=== PATIENT | male | born 1990 | race Caucasian/White ===

== ENCOUNTER 2016-11-23 20:45 | Inpatient (IN) | payer BC ==
--- NOTE | ~2016-11-23 | OP ---
Record Of Operation [facility] [address] [place]. [address] NAME: LISA REID : [id number] STATUS : ADM IN PAT#: [id number] AGE: 26 ADM/REG DATE : 11/23/16 MR#: [id number] REPORT SERV DATE: 12/07/16 DICTATED BY: VERONICA PALMER III DATE: 12/07/16 REPORT STATUS : Draft TRANSCRIBED BY: MODL DATE: 12/07/16 DATE OF PROCEDURE: 12/07/2016 PREOPERATIVE DIAGNOSIS: Acute leukemia with need for Port-A-Cath placement to allow for chronic IV access for chemotherapy. POSTOPERATIVE DIAGNOSIS: Acute leukemia with need for Port-A-Cath placement to allow for chronic IV access for chemotherapy. PROCEDURE: Right subclavian vein Port-A-Cath placement with fluoroscopy. SURGEON: Veronica Palmer M.D. ANESTHESIA: MAC anesthesia. COMPLICATIONS: None. ESTIMATED BLOOD LOSS: Less than 5 mL. SPECIMENS: None. DRAINS: None. LAP AND SPONGE COUNT: Correct x3. BRIEF HISTORY: This 26-year-old male was recently diagnosed with acute leukemia. We have been asked by his medical oncologist to place a Port-A-Cath to allow for chronic IV access for chemotherapy. This procedure, the risks, benefits, and alternatives, including but not limited to the risk for bleeding, infection, pneumothorax, air embolus, pericardial tamponade, failure of the port to function, infection of the port, or subclavian vein thrombosis requiring removal of the port, dislodgement of the Port-A-Cath tubing requiring extraction, and unforeseen complications including deep venous thrombosis, pulmonary embolus, myocardial infarction, stroke, pneumonia, and were explained to the patient prior to the surgery. His questions were answered. He understood the risks and agreed to the surgery as planned. DESCRIPTION OF PROCEDURE: After being properly identified and after discussing the risks and benefits of the surgery with him again in the preoperative area, the patient was taken to the operating room and placed in the supine position on the operating room table. MAC anesthesia was administered. He was intubated without difficulty. The upper chest and neck areas were prepped and draped sterilely in the usual fashion. After an appropriate "time- out" per JCAHO standards, an 18-gauge needle was used to identify the right subclavian vein, the area was injected with 0.5% Marcaine. The vein was identified on the first pass of the needle. A guidewire was passed through the needle. The needle was removed. Fluoroscopy was performed, confirming the tip of the guidewire to be in the correct position in the superior vena cava. A small transverse incision was then made at the exit site of the Record Of Operation [address] [address] NAME: LISA REID : [id number] STATUS : ADM IN [facility]#: [id number] AGE: 26 ADM/REG DATE : 11/23/16 MR#: [id number] REPORT SERV DATE: 12/07/16 DICTATED BY: VERONICA PALMER III DATE: 12/07/16 REPORT STATUS : Draft TRANSCRIBED BY: JENNIFER DATE: 12/07/16 guidewire from the skin. A subcutaneous infraclavicular pocket was made of the appropriate size for the Port-A-Cath housing. The Port-A-Cath housing and tubing were assembled, flushed with a heparin solution and the tubing cut to the appropriate length. The introducer was then placed over the guidewire as the guidewire and inner dilator were removed. The Port-A-Cath tubing was then placed through the sheath as the sheath was peeled away. This went very smoothly. The Port-A-Cath housing was positioned in the infraclavicular pocket. It was secured in place with 2-0 silk sutures. A repeat fluoroscopy was performed, confirming the tip of the Port-A-Cath tubing to be in the correct position of the superior vena cava. The port was accessed with a Casillas needle, it was noted to aspirate blood easily. It was flushed with heparin solution and noted to flush easily. Hemostasis was assured. The subcutaneous tissue was closed with a running 3-0 Vicryl suture. The skin was closed with a running subcuticular 4-0 Monocryl stitch. The incision was injected with 0.5% Marcaine. Dermabond was applied. Anesthesia was reversed. The patient was taken to the recovery room in stable condition. He tolerated the procedure well. His family was informed the results of the surgery. The patient remains in the hospital for chemotherapy regarding his leukemia. BRISEYDA/JENNIFER Veronica Palmer III, M.D. / [id number] CC: Sy Cifuentes III, M.D.
--- NOTE | ~2016-11-23 | CN ---
Consultation Report [facility] [address] [place]. [address] NAME: LISA REID : [id number] STATUS : ADM IN [facility]#: [id number] AGE: 26 ADM/REG DATE : 11/23/16 MR#: [id number] REPORT SERV DATE: 12/06/16 DICTATED BY: VERONICA MUNOZ III DATE: 12/06/16 REPORT STATUS : Draft TRANSCRIBED BY: MODIman DATE: 12/06/16 CONSULTATION DATE OF CONSULTATION: 12/06/2016 REASON FOR CONSULTATION: 1. Probable leukemia. 2. Evaluation for Port-A-Cath placement. HISTORY OF PRESENT ILLNESS: We have been asked to see this 26-year-old male in the hospital today for the above reasons. The patient was admitted to the hospital approximately 2 weeks ago with unusual bruising and prolonged nasal bleeding. His workup included a bone marrow biopsy for pancytopenia, which has been positive for acute promyelocytic leukemia. The patient is undergoing chemotherapy and is in need of Port-A-Cath placement to allow for chronic IV access for chemotherapy. The patient complains of pain over his left ear, which is related to a ruptured tympanic membrane. 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 PAST MEDICAL HISTORY: Unremarkable. ALLERGIES: AZITHROMYCIN. MEDICATIONS: Allopurinol, Augmentin, Cipro, . SOCIAL HISTORY: The patient is . 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 No history of tobacco use. He has occasional history of alcohol use. FAMILY HISTORY: Positive for coronary artery disease and cerebrovascular accident. PHYSICAL EXAMINATION: GENERAL: This is a male, in no acute distress. He is alert and oriented x3. VITAL SIGNS: Blood pressure 112/57, pulse 68, temperature 98.1. HEENT: Unremarkable. NEUROLOGIC: Cranial nerves 2 through 12 were normal. LUNGS: Clear. CARDIAC: Normal. ABDOMEN: Soft. Nontender. IMAGING DATA: Chest x-ray is normal. LABORATORY DATA: Platelet count 16,000, hematocrit 20, white blood cell count 425. ASSESSMENT: 1. A 26-year-old male with acute leukemia, with need for Port-A-Cath placement to allow for chronic IV access for chemotherapy. Consultation Report [address] [address] NAME: LISA REID : [id number] STATUS : ADM IN [facility]#: [id number] AGE: 26 ADM/REG DATE : 11/23/16 MR#: [id number] REPORT SERV DATE: 12/06/16 DICTATED BY: VERONICA MUNOZ III DATE: 12/06/16 REPORT STATUS : Draft TRANSCRIBED BY: MODL DATE: 12/06/16 2. Thrombocytopenia. PLAN: We will schedule the patient for a Port-A-Cath placement tomorrow. This procedure, the risks, benefits, and alternatives, including but not limited to the risk for bleeding, infection, pneumothorax, air embolus, pericardial tamponade, failure of the port to function, infection of the port, or subclavian vein thrombosis requiring removal of the port, dislodgement of the Port-A-Cath tubing requiring extraction, and unforeseen complications including deep venous thrombosis, pulmonary embolus, myocardial infarction, stroke, pneumonia, and , have been explained to the patient prior to surgery. The fact that there will be increased risk for bleeding because of his thrombocytopenia has been explained. The patient's questions have been answered. He understands the risks and agrees to surgery as planned. BRISEYDA/JENNIFER Veronica Munoz III, M.D. / [id number] CC: Sy Cifuentes III, M.D.
--- NOTE | ~2016-11-23 | DS ---
Discharge Summary [facility] [address] [place]. [address] NAME: LISA REID : [id number] STATUS : DIS IN PAT#: [id number] AGE: 26 ADM/REG DATE : 11/23/16 MR#: [id number] REPORT SERV DATE: 12/30/16 DICTATED BY: SY BENITEZ III DATE: 12/29/16 REPORT STATUS : Draft TRANSCRIBED BY: JENNIFER DATE: 12/29/16 Data Collection from hospitalization DISCHARGE DIAGNOSIS(ES): Acute promyelocytic leukemia. CONSULTATIONS: Scott Munoz M.D., and Toby Eckert M.D., and Luis Joiner M.D. PROCEDURES PERFORMED: Right subclavian vein Port-A-Cath placement with fluoroscopy, 12/07/2016. PATHOLOGY: Peripheral smear with severe pancytopenia and circulating primitive cells/promyelocytes consistent with promyelocytic leukemia, unilateral bone marrow biopsy, and aspiration and clot section - markedly hypercellular (greater than 95%) marrow with primitive cell infiltrates (greater than 90% cellularity) consistent with acute promyelocytic leukemia, confirmation with PML/SALAZAR-positive, cytogenetics and flow cytometry pending (to be issued in an addendum). MEDICATIONS: Ciloxan 3-5 drops twice a day OT, Vesanoid 10 mg at bedtime and 20 mg daily, triamcinolone cream one application topically daily as needed, arsenic trioxide as instructed. He was instructed not to continue ibuprofen, Aleve, DayQuil, or NyQuil. CONDITION AT DISCHARGE: Stable. DISPOSITION: The patient was discharged home on a regular diet. Activities as instructed. He would follow up with me, 12/20/2016, and would follow up with me, 12/22/2016. HOSPITAL COURSE: This is a 26-year-old man, who had been in very good health. He takes very good care of himself and runs marathons. He ran a marathon in the early part of October without difficulty. Around 11/04/2016, he began to notice that he was more fatigued. 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 He noticed that on the day prior to this admission when he removed his wet suit. He had significant bruising around his arms, and he felt very tired. He also had some petechiae on his legs and bruises on his chest but did not remember any trauma. He sought care at a local physician's care. Lab studies revealed his white count to be 9000 with 54% granulocytes, hemoglobin was 7.4, platelets were 13. He was referred immediately to [facility]. He had a nosebleed that lasted on the day prior to this admission for six hours while he was driving. He had also had mild headache, some loose stools, and some increased shortness of breath and poor exercise tolerance. The patient was transferred here and admitted for further evaluation with acute pancytopenia with symptomatic anemia. Upon admission, the differential included aplastic anemia versus an acute leukemia. IV fluids were started. He received two units of packed red blood cells and one pack of platelets. It was felt that he would need to undergo a bone marrow biopsy. His white blood cell count was found to be 1.0, hemoglobin 7.3, and platelet count of 8. He has seen no blood in his stool or elsewhere. prognosis would depend on the underlying diagnosis. With the patient's excellent help, it was felt that he would be a good candidate for any form of therapy available up into doing and including high-dose therapy and stem Discharge Summary [address] [place]. [address] NAME: LISA REID : [id number] STATUS : DIS IN PAT#: [id number] AGE: 26 ADM/REG DATE : 11/23/16 MR#: [id number] REPORT SERV DATE: 12/30/16 DICTATED BY: SY BENITEZ III DATE: 12/29/16 REPORT STATUS : Draft TRANSCRIBED BY: MODL DATE: 12/29/16 cell transplantation if necessary. He does have a brother and living parents as his potential donor options should that become necessary. He was started on prophylactic acyclovir and fluconazole. He was started on appropriate antibiotics IV with cefepime. He was transferred to the leukemia units. The patient was seen by Dr. Toby Eckert. Plans will be made for a bone marrow biopsy to be performed. A triple lumen PICC line was going to be placed. B12 and folate were going to be checked the following morning. Diflucan and acyclovir were being given. On 11/25/2016, an echocardiogram was performed. A triple lumen PICC line was inserted. The patient continued to have a slow nosebleed. He had no other problems at this time. The patient was felt to have acute promyelocytic leukemia. ATRA was continued. The following day the patient said he felt miserable with epistaxis and left ear severe pain. He was uncomfortable. FISH was going to be checked. An ENT consult was requested. He was seen by Dr. Luis Joiner. The patient was complaining of epistaxis with left ear pain. He had decreased hearing in the left ear as well. Examination of the left ear revealed blood and pus. The external auditory canal was swollen. The tympanic membrane was poorly visualized. Cipro was going to begin. On 11/27/2016, epistaxis had stopped. White count was 4.9. He was responding to ATRA. Arsenic trioxide was started. Zofran was soft. He still had drainage and intermittent pain in the left ear. Blood counts were improving. He was receiving oral Augmentin as well as Cipro. On the , he had a mild amount of bleeding from the left ear. He had no edema. His lungs were clear. ATRA plus arsenic were continued. He was transfused two units of blood. He continued to have some ear pain but it had improved. He still reported otorrhea. He had no bleeding. The drainage from his ear began to decrease. He did have some minimal tenderness around the PICC line site. On the , the patient was seen by Dr. Scott Munoz regarding probable leukemia and evaluation for Port-A-Cath placement. He had had a bone marrow biopsy for pancytopenia, which had been positive for acute promyelocytic leukemia. He was undergoing chemotherapy and was in need of a Port-A-Cath to allow for chronic IV access for chemotherapy. He continued to complain of pain over his left ear, which was related to a ruptured tympanic membranes. Chest x-ray was normal. Platelet count was 16,000. The patient was going to be scheduled for Port-A-Cath placement the following day. He still had some bleeding from the left ear. Platelets were transfused. Augmentin was continued. On the , he was taken to the operating room by Dr. Janie Munoz where he underwent the above-mentioned procedure. He tolerated this well. There were no complications. The patient was noting tinnitus and continued left ear otorrhea. He was up sitting in a chair. Oral Augmentin was restarted. Drops were continued. On 12/08/2016, the patient had itching over his arms and legs. Diflucan was soft. DAVID and ATRA were being held until his liver function tests recovered. Daily CMP was being checked. Cipro drops continued. He complained of some dizziness. He noticed some swelling at the port site when ambulating. This was going to be observed and it was felt this should resolve. On 12/11/2016, he had no new problems. He still had some mild dizziness. His elevated liver function tests were slowly improving. The arsenic was going to begin. ATRA remained on hold. On the , ATRA was restarted. Liver function tests were normalizing. ATRA and DAVID continued at 50% dosing. On the , intermittent heat was going to be applied to the right arm PAC site due to the edema and tenderness. He had no new complaints. He said he was feeling well. He was ambulating. He had no nausea or vomiting. Discharge Summary [facility] [address] [place]. [address] NAME: LISA REID : [id number] STATUS : DIS IN PAT#: [id number] AGE: 26 ADM/REG DATE : 11/23/16 MR#: [id number] REPORT SERV DATE: 12/30/16 DICTATED BY: SY BENITEZ III DATE: 12/29/16 REPORT STATUS : Draft TRANSCRIBED BY: JENNIFER DATE: 12/29/16 He was tolerating some oral intake. Transaminitis was trending down. Thrombocytopenia was improving. Discharge planning was performed on 12/19/2016. Discharge instructions were given. Due to his improved and stable condition, he was discharged home with the above- stated instructions. Information collected by: Coby Krishnan I submit the above information as my discharge summary. JORDON/JENNIFER Sy Benitez III, M.D. / [id number] CC: Manda Ernandez III, III, M.D.
[~2016-11-23 20:45] MED LIST: ADVIL PO; ALEVE220 MG PO; DAYQUIL PO
[2016-11-23] MEDS ORDERED: NYQUIL PO (21:37)
[2016-11-23] MEDS ORDERED: ALEVE220 MG PO (21:38)
[2016-11-23] MEDS ORDERED: TRIAMCINOLONE C80 GM TOP (21:39)
[2016-11-24 06:07] LABS: HEMOGLOBIN 8.4 g/dL (13.6-17.8); MEAN CORPUS HGB CONC 35.4 g/dL (32.0-36.0); MEAN CORPUSCULAR HEMOGLOB 33.9 pg (26.0-34.0); MEAN PLATELET VOLUME 11.8 fL (9.2-13.0); NUCLEATED RED BLOOD CELLS 1.6 /100WBC (0-0); RBC DISTRIBUTION WIDTH 15.3 % (12.0-16.0); RED CELL COUNT 2.48 10/6/uL (4.7-6.1)
[2016-11-24 06:14] LABS: HEMATOCRIT 23.7 % (40.0-51.0); MEAN CORPUSCULAR VOLUME 95.6 fL (80-100); PLATELET COUNT 17 10/3/uL (150-400); WHITE BLOOD CELLS 1.6 10/3/uL (4.5-10.5)
[2016-11-24 06:15] LABS: MANUAL DIFF YES %
[2016-11-24 06:18] LABS: CALCIUM, SERUM 8.5 MG/DL (8.5-10.4); CHLORIDE, SERUM 104 MMOL/L (96-112); CO2 (CARBON DIOXIDE) 27 MMOL/L (24-34); CREATININE 0.67 MG/DL (0.70-1.30); GFR AFRICAN AMERICAN 152 ML/MIN (>=60); GFR NON AFRICAN AMERICAN 131 ML/MIN (>=60); GLUCOSE, SERUM 99 MG/DL (60-99); POTASSIUM, SERUM 4.1 MMOL/L (3.5-5.3); SODIUM, SERUM 141 MMOL/L (135-148)
[2016-11-24 06:19] LABS: BUN (BLOOD UREA NITROGEN) 10 MG/DL (6-23)
[2016-11-24 07:05] LABS: METAMYELOCYTES 4 %; MYELOCYTES 1 %; TOTAL NUCLEATED CELLS 100
[2016-11-24 07:06] LABS: RBC MORPHOLOGY NORM (NORMAL)
[2016-11-24 08:09] LABS: RETICULOCYTE COUNT 2.9 % (0.5-2.9); RETICULOCYTE COUNT ABSOLUTE 72.2 10/3/uL (20.2-119.8)
[2016-11-24 10:33] LABS: BAND NEUTROPHILS 2 %; SEGMENTED NEUTROPHIL (0) 7 %
[2016-11-24 10:34] LABS: LYMPHOCYTES 33 %; PROMYELOCYTES 53 % (0)
[2016-11-24 10:36] LABS: LYMPHOCYTES ABSOLUTE (CALC) 0.53 10/3/uL (0.67-4.30); NEUTROPHILS ABSOLUTE (CALC) 0.14 10/3/uL (2.02-8.40)
[2016-11-24 10:38] LABS: IMMATURE GRANS ABSOLUTE (CALC) 0.93 10/3/uL (0.0-0.11)
[2016-11-24 11:06] LABS: PARTIAL THROMBO TIME 29.4 SEC (22.5-37.2)
[2016-11-24 11:08] LABS: INTERNATIONAL NORMAL RATI 1.4 UNITS (-)
[2016-11-24 17:11] LABS: INTERNATIONAL NORMAL RATI 1.3 UNITS (-); PARTIAL THROMBO TIME 28.8 SEC (22.5-37.2); PROTIME (NOT ORD) 16.2 SEC (12.0-14.5)
[2016-11-25 07:32] LABS: FIBRINOGEN 227 MG/DL (230-462); INTERNATIONAL NORMAL RATI 1.2 UNITS (-); PARTIAL THROMBO TIME 27.5 SEC (22.5-37.2); PROTIME (NOT ORD) 15.5 SEC (12.0-14.5)
[2016-11-25 07:40] LABS: A/G RATIO 1.1 (0.7-1.9); ALBUMIN 3.9 G/DL (3.5-5.0); ALKALINE PHOSPHATASE 54 U/L (45-117); BUN (BLOOD UREA NITROGEN) 11 MG/DL (6-23); CALCIUM, SERUM 8.9 MG/DL (8.5-10.4); CHLORIDE, SERUM 102 MMOL/L (96-112); CO2 (CARBON DIOXIDE) 27 MMOL/L (24-34); CREATININE 0.77 MG/DL (0.70-1.30); GFR AFRICAN AMERICAN 143 ML/MIN (>=60); GFR NON AFRICAN AMERICAN 123 ML/MIN (>=60); GLOBULIN 3.4 G/DL (2.5-4.1); GLUCOSE, SERUM 103 MG/DL (60-99); SGOT(AST) 21 U/L (5-40); SGPT(ALT) 28 U/L (5-65); SODIUM, SERUM 140 MMOL/L (135-148); TOTAL BILIRUBIN 0.7 MG/DL (0-1.2); TOTAL PROTEIN 7.3 G/DL (6.0-8.5)
[2016-11-25 07:42] LABS: HEMATOCRIT 23.8 % (40.0-51.0); HEMOGLOBIN 8.5 g/dL (13.6-17.8); MEAN CORPUS HGB CONC 35.7 g/dL (32.0-36.0); MEAN CORPUSCULAR HEMOGLOB 33.9 pg (26.0-34.0); MEAN CORPUSCULAR VOLUME 94.8 fL (80-100); MEAN PLATELET VOLUME 10.1 fL (9.2-13.0); RBC DISTRIBUTION WIDTH 15.6 % (12.0-16.0); RED CELL COUNT 2.51 10/6/uL (4.7-6.1)
[2016-11-25 07:47] LABS: PLATELET COUNT 28 10/3/uL (150-400); WHITE BLOOD CELLS 2.4 10/3/uL (4.5-10.5)
[2016-11-25 07:48] LABS: MANUAL DIFF YES %
[2016-11-25 08:30] LABS: BAND NEUTROPHILS 1 %; BASOPHILS 1 %; BASOPHILS ABSOLUTE (CALC) 0.02 10/3/uL (0.0-0.16); BLASTS 4 % (0); LYMPHOCYTES 23 %; LYMPHOCYTES ABSOLUTE (CALC) 0.55 10/3/uL (0.67-4.30); METAMYELOCYTES 2 %; MONOCYTES 9 %; MONOCYTES ABSOLUTE (CALC) 0.22 10/3/uL (0.21-1.20); MYELOCYTES 1 %; NEUTROPHILS ABSOLUTE (CALC) 0.22 10/3/uL (2.02-8.40); SEGMENTED NEUTROPHIL (0) 8 %; TOTAL NUCLEATED CELLS 100
[2016-11-25 08:32] LABS: POLYCHROMASIA 1+ (2-5/OIF) (0-1/OIF); PROMYELOCYTES 51 % (0)
[2016-11-25 19:04] LABS: HEMATOCRIT 23.7 % (40.0-51.0); HEMOGLOBIN 8.3 g/dL (13.6-17.8); INTERNATIONAL NORMAL RATI 1.3 UNITS (-); MEAN CORPUSCULAR HEMOGLOB 33.2 pg (26.0-34.0); MEAN CORPUSCULAR VOLUME 94.8 fL (80-100); MEAN PLATELET VOLUME 10.2 fL (9.2-13.0); NUCLEATED RED BLOOD CELLS 2.3 /100WBC (0-0); PARTIAL THROMBO TIME 27.5 SEC (22.5-37.2); PROTIME (NOT ORD) 15.8 SEC (12.0-14.5); RBC DISTRIBUTION WIDTH 15.5 % (12.0-16.0); WHITE BLOOD CELLS 2.7 10/3/uL (4.5-10.5)
[2016-11-25 19:05] LABS: FIBRINOGEN 268 MG/DL (230-462); MANUAL DIFF YES %; PLATELET COUNT 22 10/3/uL (150-400)
[2016-11-25 19:13] LABS: A/G RATIO 1.1 (0.7-1.9); ALBUMIN 4.3 G/DL (3.5-5.0); ALKALINE PHOSPHATASE 56 U/L (45-117); BUN (BLOOD UREA NITROGEN) 12 MG/DL (6-23); CALCIUM, SERUM 8.9 MG/DL (8.5-10.4); CHLORIDE, SERUM 98 MMOL/L (96-112); CO2 (CARBON DIOXIDE) 29 MMOL/L (24-34); CREATININE 0.81 MG/DL (0.70-1.30); GFR AFRICAN AMERICAN 140 ML/MIN (>=60); GFR NON AFRICAN AMERICAN 121 ML/MIN (>=60); GLOBULIN 3.8 G/DL (2.5-4.1); GLUCOSE, SERUM 98 MG/DL (60-99); POTASSIUM, SERUM 3.9 MMOL/L (3.5-5.3); SGOT(AST) 20 U/L (5-40); SGPT(ALT) 28 U/L (5-65); SODIUM, SERUM 139 MMOL/L (135-148); TOTAL BILIRUBIN 0.3 MG/DL (0-1.2); TOTAL PROTEIN 8.1 G/DL (6.0-8.5)
[2016-11-25 19:36] LABS: ANISOCYTOSIS 1+ (5-10/OIF) (0-5/OIF); BAND NEUTROPHILS 6 %; BASOPHILS 1 %; BASOPHILS ABSOLUTE (CALC) 0.03 10/3/uL (0.0-0.16); IMMATURE GRANS ABSOLUTE (CALC) 1.13 10/3/uL (0.0-0.11); LYMPHOCYTES 29 %; LYMPHOCYTES ABSOLUTE (CALC) 0.78 10/3/uL (0.67-4.30); METAMYELOCYTES 1 %; MONOCYTES 1 %; MONOCYTES ABSOLUTE (CALC) 0.03 10/3/uL (0.21-1.20); NEUTROPHILS ABSOLUTE (CALC) 0.54 10/3/uL (2.02-8.40); SEGMENTED NEUTROPHIL (0) 14 %; TOTAL NUCLEATED CELLS 100
[2016-11-25 19:37] LABS: POIKILOCYTOSIS 1+ (5-10/OIF) (0-5/OIF)
[2016-11-25 19:39] LABS: BLASTS 7 % (0); PROMYELOCYTES 41 % (0)
[2016-11-26 05:41] LABS: HEMATOCRIT 21.4 % (40.0-51.0); HEMOGLOBIN 7.6 g/dL (13.6-17.8); MEAN CORPUS HGB CONC 35.5 g/dL (32.0-36.0); MEAN CORPUSCULAR HEMOGLOB 33.8 pg (26.0-34.0); MEAN CORPUSCULAR VOLUME 95.1 fL (80-100); MEAN PLATELET VOLUME 9.9 fL (9.2-13.0); NUCLEATED RED BLOOD CELLS 1.6 /100WBC (0-0); RBC DISTRIBUTION WIDTH 15.3 % (12.0-16.0); RED CELL COUNT 2.25 10/6/uL (4.7-6.1); WHITE BLOOD CELLS 2.8 10/3/uL (4.5-10.5)
[2016-11-26 05:42] LABS: MANUAL DIFF YES %; PLATELET COUNT 15 10/3/uL (150-400)
[2016-11-26 05:43] LABS: FIBRINOGEN 259 MG/DL (230-462); INTERNATIONAL NORMAL RATI 1.2 UNITS (-); PARTIAL THROMBO TIME 28.6 SEC (22.5-37.2); PROTIME (NOT ORD) 15.3 SEC (12.0-14.5)
[2016-11-26 05:51] LABS: A/G RATIO 1.2 (0.7-1.9); ALBUMIN 3.7 G/DL (3.5-5.0); ALKALINE PHOSPHATASE 60 U/L (45-117); BUN (BLOOD UREA NITROGEN) 15 MG/DL (6-23); CALCIUM, SERUM 8.7 MG/DL (8.5-10.4); CHLORIDE, SERUM 101 MMOL/L (96-112); CO2 (CARBON DIOXIDE) 29 MMOL/L (24-34); CREATININE 0.78 MG/DL (0.70-1.30); GFR AFRICAN AMERICAN 142 ML/MIN (>=60); GFR NON AFRICAN AMERICAN 123 ML/MIN (>=60); GLOBULIN 3.2 G/DL (2.5-4.1); GLUCOSE, SERUM 101 MG/DL (60-99); POTASSIUM, SERUM 4.2 MMOL/L (3.5-5.3); SGOT(AST) 19 U/L (5-40); SGPT(ALT) 24 U/L (5-65); SODIUM, SERUM 139 MMOL/L (135-148); TOTAL BILIRUBIN 0.3 MG/DL (0-1.2); TOTAL PROTEIN 6.9 G/DL (6.0-8.5)
[2016-11-26 07:21] LABS: BLASTS 5 % (0); IMMATURE GRANS ABSOLUTE (CALC) 1.34 10/3/uL (0.0-0.11); LYMPHOCYTES 41 %; LYMPHOCYTES ABSOLUTE (CALC) 1.15 10/3/uL (0.67-4.30); MONOCYTES 1 %; MONOCYTES ABSOLUTE (CALC) 0.03 10/3/uL (0.21-1.20); NEUTROPHILS ABSOLUTE (CALC) 0.14 10/3/uL (2.02-8.40); SEGMENTED NEUTROPHIL (0) 5 %; TOTAL NUCLEATED CELLS 100
[2016-11-26 07:23] LABS: PROMYELOCYTES 48 % (0)
[2016-11-26 07:25] LABS: RBC MORPHOLOGY NORM (NORMAL)
[2016-11-26 15:59] LABS: HEMOGLOBIN 7.5 g/dL (13.6-17.8); MEAN CORPUS HGB CONC 35.7 g/dL (32.0-36.0); MEAN CORPUSCULAR HEMOGLOB 33.8 pg (26.0-34.0); MEAN CORPUSCULAR VOLUME 94.6 fL (80-100); MEAN PLATELET VOLUME 9.4 fL (9.2-13.0); RBC DISTRIBUTION WIDTH 15.2 % (12.0-16.0); RED CELL COUNT 2.22 10/6/uL (4.7-6.1); WHITE BLOOD CELLS 3.1 10/3/uL (4.5-10.5)
[2016-11-26 16:00] LABS: MANUAL DIFF YES %; PLATELET COUNT 38 10/3/uL (150-400)
[2016-11-26 16:34] LABS: ALBUMIN 3.7 G/DL (3.5-5.0); ALKALINE PHOSPHATASE 54 U/L (45-117); BUN (BLOOD UREA NITROGEN) 12 MG/DL (6-23); CHLORIDE, SERUM 102 MMOL/L (96-112); CO2 (CARBON DIOXIDE) 30 MMOL/L (24-34); CREATININE 0.64 MG/DL (0.70-1.30); GFR AFRICAN AMERICAN 154 ML/MIN (>=60); GFR NON AFRICAN AMERICAN 133 ML/MIN (>=60); GLOBULIN 3.6 G/DL (2.5-4.1); GLUCOSE, SERUM 104 MG/DL (60-99); POTASSIUM, SERUM 4.4 MMOL/L (3.5-5.3); SGOT(AST) 19 U/L (5-40); SGPT(ALT) 23 U/L (5-65); SODIUM, SERUM 141 MMOL/L (135-148); TOTAL BILIRUBIN 0.3 MG/DL (0-1.2); TOTAL PROTEIN 7.3 G/DL (6.0-8.5)
[2016-11-26 16:35] LABS: PARTIAL THROMBO TIME 27.9 SEC (22.5-37.2)
[2016-11-26 16:37] LABS: INTERNATIONAL NORMAL RATI 1.2 UNITS (-); PROTIME (NOT ORD) 15.1 SEC (12.0-14.5)
[2016-11-26 16:43] LABS: ANISOCYTOSIS 1+ (5-10/OIF) (0-5/OIF); BAND NEUTROPHILS 4 %; BASOPHILS 1 %; BASOPHILS ABSOLUTE (CALC) 0.03 10/3/uL (0.0-0.16); IMMATURE GRANS ABSOLUTE (CALC) 1.21 10/3/uL (0.0-0.11); LYMPHOCYTES 43 %; LYMPHOCYTES ABSOLUTE (CALC) 1.33 10/3/uL (0.67-4.30); NEUTROPHILS ABSOLUTE (CALC) 0.37 10/3/uL (2.02-8.40); NUCLEATED RED BLOOD CELLS 5 /100WBC (0); SEGMENTED NEUTROPHIL (0) 8 %; TOTAL NUCLEATED CELLS 100
[2016-11-26 16:44] LABS: POIKILOCYTOSIS 1+ (5-10/OIF) (0-5/OIF)
[2016-11-26 16:45] LABS: BLASTS 5 % (0); PROMYELOCYTES 39 % (0)
[2016-11-27 06:00] LABS: INTERNATIONAL NORMAL RATI 1.2 UNITS (-); PROTIME (NOT ORD) 15.5 SEC (12.0-14.5)
[2016-11-27 06:05] LABS: HEMOGLOBIN 7.5 g/dL (13.6-17.8); MEAN CORPUS HGB CONC 35.7 g/dL (32.0-36.0); MEAN CORPUSCULAR HEMOGLOB 33.5 pg (26.0-34.0); MEAN CORPUSCULAR VOLUME 93.8 fL (80-100); MEAN PLATELET VOLUME 9.8 fL (9.2-13.0); NUCLEATED RED BLOOD CELLS 0.8 /100WBC (0-0); RED CELL COUNT 2.24 10/6/uL (4.7-6.1)
[2016-11-27 06:10] LABS: MANUAL DIFF YES %; PLATELET COUNT 57 10/3/uL (150-400); WHITE BLOOD CELLS 4.9 10/3/uL (4.5-10.5)
[2016-11-27 06:15] LABS: ALBUMIN 3.7 G/DL (3.5-5.0); ALKALINE PHOSPHATASE 46 U/L (45-117); BUN (BLOOD UREA NITROGEN) 11 MG/DL (6-23); CALCIUM, SERUM 9.2 MG/DL (8.5-10.4); CHLORIDE, SERUM 99 MMOL/L (96-112); CO2 (CARBON DIOXIDE) 29 MMOL/L (24-34); CREATININE 0.72 MG/DL (0.70-1.30); GFR AFRICAN AMERICAN 147 ML/MIN (>=60); GFR NON AFRICAN AMERICAN 127 ML/MIN (>=60); GLOBULIN 3.6 G/DL (2.5-4.1); GLUCOSE, SERUM 112 MG/DL (60-99); SGOT(AST) 25 U/L (5-40); SGPT(ALT) 21 U/L (5-65); SODIUM, SERUM 136 MMOL/L (135-148); TOTAL BILIRUBIN 0.2 MG/DL (0-1.2); TOTAL PROTEIN 7.3 G/DL (6.0-8.5)
[2016-11-27 08:05] LABS: BAND NEUTROPHILS 2 %; IMMATURE GRANS ABSOLUTE (CALC) 2.11 10/3/uL (0.0-0.11); LYMPHOCYTES 31 %; LYMPHOCYTES ABSOLUTE (CALC) 1.52 10/3/uL (0.67-4.30); MONOCYTES 6 %; MONOCYTES ABSOLUTE (CALC) 0.29 10/3/uL (0.21-1.20); MYELOCYTES 1 %; NEUTROPHILS ABSOLUTE (CALC) 0.64 10/3/uL (2.02-8.40); SEGMENTED NEUTROPHIL (0) 11 %; TOTAL NUCLEATED CELLS 100
[2016-11-27 08:06] LABS: BLASTS 7 % (0); PROMYELOCYTES 42 % (0)
[2016-11-27 08:07] LABS: PLATELET ESTIMATE DEC (ADEQUATE); POLYCHROMASIA 1+ (2-5/OIF) (0-1/OIF)
[2016-11-27 08:08] LABS: HYPOCHROMIA 1+ (3-10/OIF) (0-2/OIF)
[2016-11-27 18:50] LABS: ALBUMIN 3.9 G/DL (3.5-5.0); ALKALINE PHOSPHATASE 50 U/L (45-117); BUN (BLOOD UREA NITROGEN) 11 MG/DL (6-23); CALCIUM, SERUM 9.4 MG/DL (8.5-10.4); CHLORIDE, SERUM 97 MMOL/L (96-112); CO2 (CARBON DIOXIDE) 30 MMOL/L (24-34); CREATININE 0.85 MG/DL (0.70-1.30); GFR AFRICAN AMERICAN 137 ML/MIN (>=60); GFR NON AFRICAN AMERICAN 119 ML/MIN (>=60); GLOBULIN 3.8 G/DL (2.5-4.1); GLUCOSE, SERUM 106 MG/DL (60-99); POTASSIUM, SERUM 4.1 MMOL/L (3.5-5.3); SGOT(AST) 28 U/L (5-40); SGPT(ALT) 21 U/L (5-65); SODIUM, SERUM 137 MMOL/L (135-148); TOTAL BILIRUBIN 0.3 MG/DL (0-1.2); TOTAL PROTEIN 7.7 G/DL (6.0-8.5)
[2016-11-28 05:23] LABS: ALBUMIN 3.9 G/DL (3.5-5.0); ALKALINE PHOSPHATASE 50 U/L (45-117); BUN (BLOOD UREA NITROGEN) 11 MG/DL (6-23); CALCIUM, SERUM 9.3 MG/DL (8.5-10.4); CHLORIDE, SERUM 101 MMOL/L (96-112); CO2 (CARBON DIOXIDE) 28 MMOL/L (24-34); CREATININE 0.85 MG/DL (0.70-1.30); GFR AFRICAN AMERICAN 137 ML/MIN (>=60); GFR NON AFRICAN AMERICAN 119 ML/MIN (>=60); GLOBULIN 3.9 G/DL (2.5-4.1); GLUCOSE, SERUM 102 MG/DL (60-99); POTASSIUM, SERUM 4.2 MMOL/L (3.5-5.3); SGOT(AST) 28 U/L (5-40); SGPT(ALT) 23 U/L (5-65); SODIUM, SERUM 138 MMOL/L (135-148); TOTAL BILIRUBIN 0.3 MG/DL (0-1.2); TOTAL PROTEIN 7.8 G/DL (6.0-8.5)
[2016-11-28 05:30] LABS: BASOPHILS 2.9 %; BASOPHILS ABSOLUTE 0.16 10/3/uL (0.0-0.16); EOSINOPHILS 0.2 %; EOSINOPHILS ABSOLUTE 0.01 10/3/uL (0.0-0.53); HEMATOCRIT 21.1 % (40.0-51.0); HEMOGLOBIN 7.5 g/dL (13.6-17.8); IMMATURE GRANULOCYTES 3.8 %; IMMATURE GRANULOCYTES ABSOLUTE 0.21 10/3/uL (0.0-0.11); LYMPHOCYTES 30.9 %; LYMPHOCYTES ABSOLUTE 1.71 10/3/uL (0.67-4.30); MEAN CORPUS HGB CONC 35.5 g/dL (32.0-36.0); MEAN CORPUSCULAR HEMOGLOB 33.5 pg (26.0-34.0); MEAN CORPUSCULAR VOLUME 94.2 fL (80-100); MEAN PLATELET VOLUME 9.4 fL (9.2-13.0); MONOCYTES 50.1 %; MONOCYTES ABSOLUTE 2.77 10/3/uL (0.21-1.20); NEUTROPHILS 12.1 %; NEUTROPHILS ABSOLUTE 0.67 10/3/uL (2.02-8.40); RBC DISTRIBUTION WIDTH 15.1 % (12.0-16.0); RED CELL COUNT 2.24 10/6/uL (4.7-6.1); WHITE BLOOD CELLS 5.5 10/3/uL (4.5-10.5)
[2016-11-28 05:57] LABS: MANUAL DIFF NO %; PLATELET COUNT 38 10/3/uL (150-400)
[2016-11-28 06:35] LABS: FIBRINOGEN 361 MG/DL (230-462); INTERNATIONAL NORMAL RATI 1.2 UNITS (-); PARTIAL THROMBO TIME 29.7 SEC (22.5-37.2); PROTIME (NOT ORD) 15.3 SEC (12.0-14.5)
[2016-11-28 06:50] LABS: IMMATURE GRANS ABSOLUTE (CALC) 2.59 10/3/uL (0.0-0.11); LYMPHOCYTES 37 %; LYMPHOCYTES ABSOLUTE (CALC) 2.04 10/3/uL (0.67-4.30); MONOCYTES 3 %; MONOCYTES ABSOLUTE (CALC) 0.17 10/3/uL (0.21-1.20); MYELOCYTES 3 %; NEUTROPHILS ABSOLUTE (CALC) 0.72 10/3/uL (2.02-8.40); PROMYELOCYTES 44 % (0); SEGMENTED NEUTROPHIL (0) 13 %; TOTAL NUCLEATED CELLS 100
[2016-11-28 06:51] LABS: RBC MORPHOLOGY NORM (NORMAL)
[2016-11-29 05:42] LABS: MEAN CORPUS HGB CONC 36.5 g/dL (32.0-36.0); MEAN CORPUSCULAR VOLUME 93.3 fL (80-100); MEAN PLATELET VOLUME 9.2 fL (9.2-13.0); NUCLEATED RED BLOOD CELLS 1.4 /100WBC (0-0); RBC DISTRIBUTION WIDTH 15.3 % (12.0-16.0); RED CELL COUNT 1.94 10/6/uL (4.7-6.1); WHITE BLOOD CELLS 5.2 10/3/uL (4.5-10.5)
[2016-11-29 05:44] LABS: HEMATOCRIT 18.1 % (40.0-51.0); HEMOGLOBIN 6.6 g/dL (13.6-17.8); PLATELET COUNT 52 10/3/uL (150-400)
[2016-11-29 05:45] LABS: MANUAL DIFF YES %
[2016-11-29 05:50] LABS: ALBUMIN 3.6 G/DL (3.5-5.0); ALKALINE PHOSPHATASE 49 U/L (45-117); CALCIUM, SERUM 8.7 MG/DL (8.5-10.4); CHLORIDE, SERUM 101 MMOL/L (96-112); CO2 (CARBON DIOXIDE) 31 MMOL/L (24-34); CREATININE 0.92 MG/DL (0.70-1.30); GFR AFRICAN AMERICAN 131 ML/MIN (>=60); GFR NON AFRICAN AMERICAN 113 ML/MIN (>=60); GLOBULIN 3.6 G/DL (2.5-4.1); GLUCOSE, SERUM 104 MG/DL (60-99); POTASSIUM, SERUM 4.2 MMOL/L (3.5-5.3); SGOT(AST) 28 U/L (5-40); SGPT(ALT) 21 U/L (5-65); SODIUM, SERUM 138 MMOL/L (135-148); TOTAL BILIRUBIN 0.2 MG/DL (0-1.2); TOTAL PROTEIN 7.2 G/DL (6.0-8.5)
[2016-11-29 05:55] LABS: BUN (BLOOD UREA NITROGEN) 17 MG/DL (6-23)
[2016-11-29 06:29] LABS: BAND NEUTROPHILS 2 %; IMMATURE GRANS ABSOLUTE (CALC) 2.44 10/3/uL (0.0-0.11); LYMPHOCYTES 38 %; LYMPHOCYTES ABSOLUTE (CALC) 1.98 10/3/uL (0.67-4.30); METAMYELOCYTES 4 %; MONOCYTES 9 %; MONOCYTES ABSOLUTE (CALC) 0.47 10/3/uL (0.21-1.20); MYELOCYTES 4 %; NEUTROPHILS ABSOLUTE (CALC) 0.31 10/3/uL (2.02-8.40); PLATELET ESTIMATE DEC (ADEQUATE); POLYCHROMASIA 1+ (2-5/OIF) (0-1/OIF); PROMYELOCYTES 39 % (0); SEGMENTED NEUTROPHIL (0) 4 %; TOTAL NUCLEATED CELLS 100
[2016-11-29 06:30] LABS: TOXIC GRANULATION 1+
[2016-11-30 04:47] LABS: ALBUMIN 3.3 G/DL (3.5-5.0); ALKALINE PHOSPHATASE 56 U/L (45-117); BUN (BLOOD UREA NITROGEN) 16 MG/DL (6-23); CALCIUM, SERUM 8.7 MG/DL (8.5-10.4); CHLORIDE, SERUM 102 MMOL/L (96-112); CO2 (CARBON DIOXIDE) 29 MMOL/L (24-34); CREATININE 0.84 MG/DL (0.70-1.30); GFR AFRICAN AMERICAN 138 ML/MIN (>=60); GFR NON AFRICAN AMERICAN 119 ML/MIN (>=60); GLOBULIN 3.4 G/DL (2.5-4.1); GLUCOSE, SERUM 101 MG/DL (60-99); POTASSIUM, SERUM 3.8 MMOL/L (3.5-5.3); SGOT(AST) 25 U/L (5-40); SGPT(ALT) 23 U/L (5-65); SODIUM, SERUM 139 MMOL/L (135-148); TOTAL BILIRUBIN 0.2 MG/DL (0-1.2); TOTAL PROTEIN 6.7 G/DL (6.0-8.5)
[2016-11-30 04:58] LABS: HEMOGLOBIN 7.9 g/dL (13.6-17.8); MEAN CORPUS HGB CONC 36.4 g/dL (32.0-36.0); MEAN CORPUSCULAR HEMOGLOB 32.9 pg (26.0-34.0); MEAN PLATELET VOLUME 9.7 fL (9.2-13.0); NUCLEATED RED BLOOD CELLS 0.6 /100WBC (0-0); RBC DISTRIBUTION WIDTH 14.8 % (12.0-16.0); WHITE BLOOD CELLS 6.6 10/3/uL (4.5-10.5)
[2016-11-30 05:00] LABS: HEMATOCRIT 21.7 % (40.0-51.0); MANUAL DIFF YES %; MEAN CORPUSCULAR VOLUME 90.4 fL (80-100); PLATELET COUNT 41 10/3/uL (150-400)
[2016-11-30 05:23] LABS: IMMATURE GRANS ABSOLUTE (CALC) 2.84 10/3/uL (0.0-0.11); LYMPHOCYTES 35 %; LYMPHOCYTES ABSOLUTE (CALC) 2.31 10/3/uL (0.67-4.30); METAMYELOCYTES 3 %; MONOCYTES 13 %; MONOCYTES ABSOLUTE (CALC) 0.86 10/3/uL (0.21-1.20); MYELOCYTES 3 %; NEUTROPHILS ABSOLUTE (CALC) 0.59 10/3/uL (2.02-8.40); PLATELET ESTIMATE DEC (ADEQUATE); PROMYELOCYTES 37 % (0); SEGMENTED NEUTROPHIL (0) 9 %; TOTAL NUCLEATED CELLS 100
[2016-11-30 05:25] LABS: RBC MORPHOLOGY NORM (NORMAL)
[2016-12-01 05:31] LABS: A/G RATIO 0.9 (0.7-1.9); ALBUMIN 3.1 G/DL (3.5-5.0); ALKALINE PHOSPHATASE 49 U/L (45-117); BUN (BLOOD UREA NITROGEN) 13 MG/DL (6-23); CALCIUM, SERUM 8.8 MG/DL (8.5-10.4); CHLORIDE, SERUM 107 MMOL/L (96-112); CO2 (CARBON DIOXIDE) 25 MMOL/L (24-34); CREATININE 0.75 MG/DL (0.70-1.30); GFR AFRICAN AMERICAN 145 ML/MIN (>=60); GFR NON AFRICAN AMERICAN 125 ML/MIN (>=60); GLOBULIN 3.4 G/DL (2.5-4.1); GLUCOSE, SERUM 100 MG/DL (60-99); SGOT(AST) 26 U/L (5-40); SGPT(ALT) 22 U/L (5-65); SODIUM, SERUM 140 MMOL/L (135-148); TOTAL BILIRUBIN 0.2 MG/DL (0-1.2); TOTAL PROTEIN 6.5 G/DL (6.0-8.5)
[2016-12-01 06:09] LABS: HEMATOCRIT 21.9 % (40.0-51.0); HEMOGLOBIN 7.8 g/dL (13.6-17.8); MEAN CORPUS HGB CONC 35.6 g/dL (32.0-36.0); MEAN CORPUSCULAR HEMOGLOB 32.8 pg (26.0-34.0); MEAN PLATELET VOLUME 9.1 fL (9.2-13.0); NUCLEATED RED BLOOD CELLS 0.4 /100WBC (0-0); RBC DISTRIBUTION WIDTH 14.9 % (12.0-16.0); RED CELL COUNT 2.38 10/6/uL (4.7-6.1); WHITE BLOOD CELLS 8.2 10/3/uL (4.5-10.5)
[2016-12-01 06:12] LABS: PLATELET COUNT 31 10/3/uL (150-400)
[2016-12-01 06:13] LABS: MANUAL DIFF YES %
[2016-12-01 07:41] LABS: BAND NEUTROPHILS 5 %; BASOPHILS 1 %; BASOPHILS ABSOLUTE (CALC) 0.08 10/3/uL (0.0-0.16); IMMATURE GRANS ABSOLUTE (CALC) 4.76 10/3/uL (0.0-0.11); LYMPHOCYTES 17 %; LYMPHOCYTES ABSOLUTE (CALC) 1.39 10/3/uL (0.67-4.30); METAMYELOCYTES 5 %; MONOCYTES 17 %; MONOCYTES ABSOLUTE (CALC) 1.39 10/3/uL (0.21-1.20); MYELOCYTES 6 %; NEUTROPHILS ABSOLUTE (CALC) 0.57 10/3/uL (2.02-8.40); POLYCHROMASIA 1+ (2-5/OIF) (0-1/OIF); PROMYELOCYTES 47 % (0); SEGMENTED NEUTROPHIL (0) 2 %; TOTAL NUCLEATED CELLS 100
[2016-12-02 05:41] LABS: HEMATOCRIT 21.2 % (40.0-51.0); HEMOGLOBIN 7.7 g/dL (13.6-17.8); MEAN CORPUS HGB CONC 36.3 g/dL (32.0-36.0); MEAN PLATELET VOLUME 10.7 fL (9.2-13.0); RBC DISTRIBUTION WIDTH 14.9 % (12.0-16.0); RED CELL COUNT 2.33 10/6/uL (4.7-6.1); WHITE BLOOD CELLS 10.4 10/3/uL (4.5-10.5)
[2016-12-02 05:42] LABS: PLATELET COUNT 28 10/3/uL (150-400)
[2016-12-02 05:43] LABS: MANUAL DIFF YES %
[2016-12-02 06:02] LABS: ALBUMIN 3.1 G/DL (3.5-5.0); ALKALINE PHOSPHATASE 53 U/L (45-117); CALCIUM, SERUM 8.5 MG/DL (8.5-10.4); CHLORIDE, SERUM 106 MMOL/L (96-112); CO2 (CARBON DIOXIDE) 26 MMOL/L (24-34); CREATININE 0.82 MG/DL (0.70-1.30); GFR AFRICAN AMERICAN 139 ML/MIN (>=60); GFR NON AFRICAN AMERICAN 120 ML/MIN (>=60); GLOBULIN 3.1 G/DL (2.5-4.1); GLUCOSE, SERUM 101 MG/DL (60-99); POTASSIUM, SERUM 3.8 MMOL/L (3.5-5.3); SGOT(AST) 43 U/L (5-40); SGPT(ALT) 37 U/L (5-65); SODIUM, SERUM 142 MMOL/L (135-148); TOTAL BILIRUBIN 0.5 MG/DL (0-1.2); TOTAL PROTEIN 6.2 G/DL (6.0-8.5)
[2016-12-02 06:04] LABS: BUN (BLOOD UREA NITROGEN) 18 MG/DL (6-23)
[2016-12-02 07:18] LABS: BAND NEUTROPHILS 5 %; IMMATURE GRANS ABSOLUTE (CALC) 5.93 10/3/uL (0.0-0.11); LYMPHOCYTES 17 %; LYMPHOCYTES ABSOLUTE (CALC) 1.77 10/3/uL (0.67-4.30); METAMYELOCYTES 5 %; MONOCYTES 15 %; MONOCYTES ABSOLUTE (CALC) 1.56 10/3/uL (0.21-1.20); MYELOCYTES 4 %; NEUTROPHILS ABSOLUTE (CALC) 1.14 10/3/uL (2.02-8.40); PROMYELOCYTES 48 % (0); RBC MORPHOLOGY NORM (NORMAL); SEGMENTED NEUTROPHIL (0) 6 %; TOTAL NUCLEATED CELLS 100
[2016-12-03 05:58] LABS: HEMATOCRIT 21.7 % (40.0-51.0); HEMOGLOBIN 7.9 g/dL (13.6-17.8); MEAN CORPUS HGB CONC 36.4 g/dL (32.0-36.0); MEAN CORPUSCULAR HEMOGLOB 33.3 pg (26.0-34.0); MEAN CORPUSCULAR VOLUME 91.6 fL (80-100); MEAN PLATELET VOLUME 10.3 fL (9.2-13.0); RBC DISTRIBUTION WIDTH 14.9 % (12.0-16.0); RED CELL COUNT 2.37 10/6/uL (4.7-6.1); WHITE BLOOD CELLS 12.6 10/3/uL (4.5-10.5)
[2016-12-03 05:59] LABS: MANUAL DIFF YES %; PLATELET COUNT 21 10/3/uL (150-400)
[2016-12-03 06:12] LABS: BUN (BLOOD UREA NITROGEN) 17 MG/DL (6-23); CALCIUM, SERUM 8.7 MG/DL (8.5-10.4); CHLORIDE, SERUM 106 MMOL/L (96-112); CO2 (CARBON DIOXIDE) 25 MMOL/L (24-34); GFR AFRICAN AMERICAN 141 ML/MIN (>=60); GFR NON AFRICAN AMERICAN 122 ML/MIN (>=60); GLUCOSE, SERUM 102 MG/DL (60-99); POTASSIUM, SERUM 3.7 MMOL/L (3.5-5.3); SODIUM, SERUM 142 MMOL/L (135-148)
[2016-12-03 07:56] LABS: BAND NEUTROPHILS 6 %; BLASTS 1 % (0); IMMATURE GRANS ABSOLUTE (CALC) 8.19 10/3/uL (0.0-0.11); LYMPHOCYTES 16 %; LYMPHOCYTES ABSOLUTE (CALC) 2.02 10/3/uL (0.67-4.30); METAMYELOCYTES 7 %; MONOCYTES 7 %; MONOCYTES ABSOLUTE (CALC) 0.88 10/3/uL (0.21-1.20); MYELOCYTES 11 %; NEUTROPHILS ABSOLUTE (CALC) 1.39 10/3/uL (2.02-8.40); PROMYELOCYTES 47 % (0); SEGMENTED NEUTROPHIL (0) 5 %; TOTAL NUCLEATED CELLS 100
[2016-12-03 07:57] LABS: RBC MORPHOLOGY NORM (NORMAL)
[2016-12-04 05:49] LABS: HEMATOCRIT 21.5 % (40.0-51.0); HEMOGLOBIN 7.7 g/dL (13.6-17.8); MEAN CORPUS HGB CONC 35.8 g/dL (32.0-36.0); MEAN CORPUSCULAR HEMOGLOB 32.8 pg (26.0-34.0); MEAN CORPUSCULAR VOLUME 91.5 fL (80-100); MEAN PLATELET VOLUME 12.8 fL (9.2-13.0); RBC DISTRIBUTION WIDTH 14.9 % (12.0-16.0); RED CELL COUNT 2.35 10/6/uL (4.7-6.1); WHITE BLOOD CELLS 14.8 10/3/uL (4.5-10.5)
[2016-12-04 05:54] LABS: MANUAL DIFF YES %; PLATELET COUNT 21 10/3/uL (150-400)
[2016-12-04 06:01] LABS: BUN (BLOOD UREA NITROGEN) 17 MG/DL (6-23); CALCIUM, SERUM 8.4 MG/DL (8.5-10.4); CHLORIDE, SERUM 108 MMOL/L (96-112); CO2 (CARBON DIOXIDE) 26 MMOL/L (24-34); CREATININE 0.82 MG/DL (0.70-1.30); GFR AFRICAN AMERICAN 139 ML/MIN (>=60); GFR NON AFRICAN AMERICAN 120 ML/MIN (>=60); GLUCOSE, SERUM 103 MG/DL (60-99); POTASSIUM, SERUM 3.8 MMOL/L (3.5-5.3); SODIUM, SERUM 143 MMOL/L (135-148)
[2016-12-04 06:38] LABS: BAND NEUTROPHILS 2 %; BLASTS 1 % (0); IMMATURE GRANS ABSOLUTE (CALC) 10.51 10/3/uL (0.0-0.11); LYMPHOCYTES 14 %; LYMPHOCYTES ABSOLUTE (CALC) 2.07 10/3/uL (0.67-4.30); METAMYELOCYTES 5 %; MONOCYTES 5 %; MONOCYTES ABSOLUTE (CALC) 0.74 10/3/uL (0.21-1.20); MYELOCYTES 6 %; NEUTROPHILS ABSOLUTE (CALC) 1.33 10/3/uL (2.02-8.40); PROMYELOCYTES 60 % (0); RBC MORPHOLOGY NORM (NORMAL); SEGMENTED NEUTROPHIL (0) 7 %; TOTAL NUCLEATED CELLS 100
[2016-12-05 05:36] LABS: HEMOGLOBIN 7.4 g/dL (13.6-17.8); MEAN CORPUS HGB CONC 36.1 g/dL (32.0-36.0); MEAN CORPUSCULAR HEMOGLOB 33.3 pg (26.0-34.0); MEAN CORPUSCULAR VOLUME 92.3 fL (80-100); RED CELL COUNT 2.22 10/6/uL (4.7-6.1); WHITE BLOOD CELLS 14.5 10/3/uL (4.5-10.5)
[2016-12-05 05:38] LABS: HEMATOCRIT 20.5 % (40.0-51.0); PLATELET COUNT 16 10/3/uL (150-400)
[2016-12-05 05:39] LABS: MANUAL DIFF YES %
[2016-12-05 05:46] LABS: BUN (BLOOD UREA NITROGEN) 16 MG/DL (6-23); CALCIUM, SERUM 8.6 MG/DL (8.5-10.4); CHLORIDE, SERUM 108 MMOL/L (96-112); CO2 (CARBON DIOXIDE) 26 MMOL/L (24-34); CREATININE 0.83 MG/DL (0.70-1.30); GFR AFRICAN AMERICAN 139 ML/MIN (>=60); GFR NON AFRICAN AMERICAN 120 ML/MIN (>=60); GLUCOSE, SERUM 135 MG/DL (60-99); POTASSIUM, SERUM 3.8 MMOL/L (3.5-5.3); SODIUM, SERUM 144 MMOL/L (135-148)
[2016-12-05 08:11] LABS: IMMATURE GRANS ABSOLUTE (CALC) 11.75 10/3/uL (0.0-0.11); LYMPHOCYTES 10 %; LYMPHOCYTES ABSOLUTE (CALC) 1.45 10/3/uL (0.67-4.30); METAMYELOCYTES 5 %; MONOCYTES 4 %; MONOCYTES ABSOLUTE (CALC) 0.58 10/3/uL (0.21-1.20); MYELOCYTES 4 %; NEUTROPHILS ABSOLUTE (CALC) 0.73 10/3/uL (2.02-8.40); PROMYELOCYTES 72 % (0); SEGMENTED NEUTROPHIL (0) 5 %; TOTAL NUCLEATED CELLS 100
[2016-12-05 08:12] LABS: RBC MORPHOLOGY NORM (NORMAL)
[2016-12-06 05:48] LABS: HEMATOCRIT 20.3 % (40.0-51.0); HEMOGLOBIN 7.1 g/dL (13.6-17.8); MANUAL DIFF YES %; MEAN CORPUSCULAR HEMOGLOB 32.6 pg (26.0-34.0); MEAN CORPUSCULAR VOLUME 93.1 fL (80-100); MEAN PLATELET VOLUME 9.7 fL (9.2-13.0); PLATELET COUNT 46 10/3/uL (150-400); RED CELL COUNT 2.18 10/6/uL (4.7-6.1); WHITE BLOOD CELLS 14.8 10/3/uL (4.5-10.5)
[2016-12-06 06:15] LABS: LYMPHOCYTES 17 %; LYMPHOCYTES ABSOLUTE (CALC) 2.52 10/3/uL (0.67-4.30); METAMYELOCYTES 12 %; MONOCYTES 1 %; MONOCYTES ABSOLUTE (CALC) 0.15 10/3/uL (0.21-1.20); MYELOCYTES 5 %; NEUTROPHILS ABSOLUTE (CALC) 0.44 10/3/uL (2.02-8.40); SEGMENTED NEUTROPHIL (0) 3 %; TOTAL NUCLEATED CELLS 100
[2016-12-06 06:16] LABS: IMMATURE GRANS ABSOLUTE (CALC) 11.69 10/3/uL (0.0-0.11); PROMYELOCYTES 62 % (0)
[2016-12-06 06:17] LABS: POLYCHROMASIA 1+ (2-5/OIF) (0-1/OIF); TOXIC GRANULATION 1+
[2016-12-07 05:38] LABS: HEMATOCRIT 21.1 % (40.0-51.0); HEMOGLOBIN 7.3 g/dL (13.6-17.8); MEAN CORPUS HGB CONC 34.6 g/dL (32.0-36.0); MEAN CORPUSCULAR HEMOGLOB 32.7 pg (26.0-34.0); MEAN CORPUSCULAR VOLUME 94.6 fL (80-100); RED CELL COUNT 2.23 10/6/uL (4.7-6.1); WHITE BLOOD CELLS 19.1 10/3/uL (4.5-10.5)
[2016-12-07 05:40] LABS: MANUAL DIFF YES %; PLATELET COUNT 40 10/3/uL (150-400)
[2016-12-07 05:47] LABS: ALBUMIN 3.2 G/DL (3.5-5.0); CALCIUM, SERUM 8.8 MG/DL (8.5-10.4); CHLORIDE, SERUM 107 MMOL/L (96-112); CO2 (CARBON DIOXIDE) 27 MMOL/L (24-34); CREATININE 0.77 MG/DL (0.70-1.30); GFR AFRICAN AMERICAN 143 ML/MIN (>=60); GFR NON AFRICAN AMERICAN 123 ML/MIN (>=60); GLOBULIN 3.1 G/DL (2.5-4.1); POTASSIUM, SERUM 4.1 MMOL/L (3.5-5.3); SGOT(AST) 287 U/L (5-40); SGPT(ALT) 448 U/L (5-65); SODIUM, SERUM 144 MMOL/L (135-148); TOTAL BILIRUBIN 0.4 MG/DL (0-1.2); TOTAL PROTEIN 6.3 G/DL (6.0-8.5)
[2016-12-07 05:49] LABS: ALKALINE PHOSPHATASE 102 U/L (45-117); BUN (BLOOD UREA NITROGEN) 21 MG/DL (6-23); GLUCOSE, SERUM 104 MG/DL (60-99)
[2016-12-07 06:27] LABS: BAND NEUTROPHILS 2 %; IMMATURE GRANS ABSOLUTE (CALC) 15.09 10/3/uL (0.0-0.11); LYMPHOCYTES 10 %; LYMPHOCYTES ABSOLUTE (CALC) 1.91 10/3/uL (0.67-4.30); METAMYELOCYTES 15 %; MONOCYTES 4 %; MONOCYTES ABSOLUTE (CALC) 0.76 10/3/uL (0.21-1.20); MYELOCYTES 11 %; NEUTROPHILS ABSOLUTE (CALC) 1.34 10/3/uL (2.02-8.40); POLYCHROMASIA 1+ (2-5/OIF) (0-1/OIF); PROMYELOCYTES 53 % (0); SEGMENTED NEUTROPHIL (0) 5 %; TOTAL NUCLEATED CELLS 100; TOXIC GRANULATION 1+
[2016-12-08 06:11] LABS: HEMOGLOBIN 7.2 g/dL (13.6-17.8); MEAN CORPUSCULAR HEMOGLOB 32.9 pg (26.0-34.0); MEAN CORPUSCULAR VOLUME 94.1 fL (80-100); RED CELL COUNT 2.19 10/6/uL (4.7-6.1); WHITE BLOOD CELLS 17.1 10/3/uL (4.5-10.5)
[2016-12-08 06:13] LABS: HEMATOCRIT 20.6 % (40.0-51.0); PLATELET COUNT 40 10/3/uL (150-400)
[2016-12-08 06:14] LABS: MANUAL DIFF YES %
[2016-12-08 06:18] LABS: A/G RATIO 1.2 (0.7-1.9); ALBUMIN 3.4 G/DL (3.5-5.0); BUN (BLOOD UREA NITROGEN) 20 MG/DL (6-23); CALCIUM, SERUM 8.4 MG/DL (8.5-10.4); CHLORIDE, SERUM 103 MMOL/L (96-112); CO2 (CARBON DIOXIDE) 28 MMOL/L (24-34); CREATININE 0.76 MG/DL (0.70-1.30); GFR AFRICAN AMERICAN 144 ML/MIN (>=60); GFR NON AFRICAN AMERICAN 124 ML/MIN (>=60); GLOBULIN 2.9 G/DL (2.5-4.1); GLUCOSE, SERUM 93 MG/DL (60-99); POTASSIUM, SERUM 3.8 MMOL/L (3.5-5.3); SGOT(AST) 347 U/L (5-40); SGPT(ALT) 515 U/L (5-65); SODIUM, SERUM 141 MMOL/L (135-148); TOTAL BILIRUBIN 0.6 MG/DL (0-1.2); TOTAL PROTEIN 6.3 G/DL (6.0-8.5)
[2016-12-08 06:20] LABS: ALKALINE PHOSPHATASE 87 U/L (45-117)
[2016-12-08 07:20] LABS: BAND NEUTROPHILS 12 %; IMMATURE GRANS ABSOLUTE (CALC) 9.41 10/3/uL (0.0-0.11); LYMPHOCYTES 12 %; LYMPHOCYTES ABSOLUTE (CALC) 2.05 10/3/uL (0.67-4.30); METAMYELOCYTES 21 %; MONOCYTES 11 %; MONOCYTES ABSOLUTE (CALC) 1.88 10/3/uL (0.21-1.20); MYELOCYTES 18 %; NEUTROPHILS ABSOLUTE (CALC) 3.76 10/3/uL (2.02-8.40); PROMYELOCYTES 16 % (0); SEGMENTED NEUTROPHIL (0) 10 %; TOTAL NUCLEATED CELLS 100
[2016-12-08 07:22] LABS: RBC MORPHOLOGY NORM (NORMAL)
[2016-12-09 04:53] LABS: HEMOGLOBIN 8.3 g/dL (13.6-17.8); MEAN CORPUS HGB CONC 35.2 g/dL (32.0-36.0); MEAN CORPUSCULAR HEMOGLOB 32.4 pg (26.0-34.0); MEAN CORPUSCULAR VOLUME 92.2 fL (80-100); MEAN PLATELET VOLUME 10.8 fL (9.2-13.0); RBC DISTRIBUTION WIDTH 15.3 % (12.0-16.0); RED CELL COUNT 2.56 10/6/uL (4.7-6.1); WHITE BLOOD CELLS 17.9 10/3/uL (4.5-10.5)
[2016-12-09 05:04] LABS: ALBUMIN 3.2 G/DL (3.5-5.0); BUN (BLOOD UREA NITROGEN) 19 MG/DL (6-23); CALCIUM, SERUM 8.4 MG/DL (8.5-10.4); CHLORIDE, SERUM 107 MMOL/L (96-112); CO2 (CARBON DIOXIDE) 27 MMOL/L (24-34); CREATININE 0.85 MG/DL (0.70-1.30); GFR AFRICAN AMERICAN 137 ML/MIN (>=60); GFR NON AFRICAN AMERICAN 119 ML/MIN (>=60); GLUCOSE, SERUM 107 MG/DL (60-99); SGOT(AST) 378 U/L (5-40); SGPT(ALT) 582 U/L (5-65); SODIUM, SERUM 144 MMOL/L (135-148); TOTAL BILIRUBIN 0.2 MG/DL (0-1.2); TOTAL PROTEIN 6.7 G/DL (6.0-8.5)
[2016-12-09 05:07] LABS: HEMATOCRIT 23.6 % (40.0-51.0); PLATELET COUNT 34 10/3/uL (150-400)
[2016-12-09 05:08] LABS: MANUAL DIFF YES %
[2016-12-09 05:11] LABS: A/G RATIO 0.9 (0.7-1.9); ALKALINE PHOSPHATASE 105 U/L (45-117); GLOBULIN 3.5 G/DL (2.5-4.1)
[2016-12-09 07:13] LABS: BAND NEUTROPHILS 10 %; BLASTS 1 % (0); IMMATURE GRANS ABSOLUTE (CALC) 10.74 10/3/uL (0.0-0.11); LYMPHOCYTES 18 %; LYMPHOCYTES ABSOLUTE (CALC) 3.22 10/3/uL (0.67-4.30); METAMYELOCYTES 13 %; MYELOCYTES 24 %; NEUTROPHILS ABSOLUTE (CALC) 3.76 10/3/uL (2.02-8.40); PROMYELOCYTES 23 % (0); RBC MORPHOLOGY NORM (NORMAL); SEGMENTED NEUTROPHIL (0) 11 %; TOTAL NUCLEATED CELLS 100
[2016-12-10 05:06] LABS: HEMATOCRIT 23.7 % (40.0-51.0); HEMOGLOBIN 8.2 g/dL (13.6-17.8); MEAN CORPUS HGB CONC 34.6 g/dL (32.0-36.0); MEAN CORPUSCULAR HEMOGLOB 31.9 pg (26.0-34.0); MEAN CORPUSCULAR VOLUME 92.2 fL (80-100); MEAN PLATELET VOLUME 12.1 fL (9.2-13.0); RBC DISTRIBUTION WIDTH 15.2 % (12.0-16.0); RED CELL COUNT 2.57 10/6/uL (4.7-6.1)
[2016-12-10 05:10] LABS: MANUAL DIFF YES %; PLATELET COUNT 32 10/3/uL (150-400)
[2016-12-10 05:29] LABS: ALBUMIN 3.4 G/DL (3.5-5.0); ALKALINE PHOSPHATASE 94 U/L (45-117); BUN (BLOOD UREA NITROGEN) 17 MG/DL (6-23); CALCIUM, SERUM 8.7 MG/DL (8.5-10.4); CHLORIDE, SERUM 107 MMOL/L (96-112); CO2 (CARBON DIOXIDE) 30 MMOL/L (24-34); CREATININE 0.84 MG/DL (0.70-1.30); GFR AFRICAN AMERICAN 138 ML/MIN (>=60); GFR NON AFRICAN AMERICAN 119 ML/MIN (>=60); GLOBULIN 3.4 G/DL (2.5-4.1); GLUCOSE, SERUM 106 MG/DL (60-99); SGOT(AST) 313 U/L (5-40); SGPT(ALT) 554 U/L (5-65); SODIUM, SERUM 142 MMOL/L (135-148); TOTAL BILIRUBIN 0.3 MG/DL (0-1.2); TOTAL PROTEIN 6.8 G/DL (6.0-8.5)
[2016-12-10 06:32] LABS: BAND NEUTROPHILS 9 %; IMMATURE GRANS ABSOLUTE (CALC) 11.21 10/3/uL (0.0-0.11); LYMPHOCYTES 20 %; METAMYELOCYTES 17 %; MYELOCYTES 23 %; NEUTROPHILS ABSOLUTE (CALC) 3.99 10/3/uL (2.02-8.40); PROMYELOCYTES 19 % (0); SEGMENTED NEUTROPHIL (0) 12 %; TOTAL NUCLEATED CELLS 100
[2016-12-11 06:20] LABS: HEMATOCRIT 22.9 % (40.0-51.0); HEMOGLOBIN 8.2 g/dL (13.6-17.8); MEAN CORPUS HGB CONC 35.8 g/dL (32.0-36.0); MEAN CORPUSCULAR HEMOGLOB 33.1 pg (26.0-34.0); MEAN CORPUSCULAR VOLUME 92.3 fL (80-100); MEAN PLATELET VOLUME 11.5 fL (9.2-13.0); RBC DISTRIBUTION WIDTH 15.5 % (12.0-16.0); RED CELL COUNT 2.48 10/6/uL (4.7-6.1); WHITE BLOOD CELLS 19.1 10/3/uL (4.5-10.5)
[2016-12-11 06:21] LABS: PLATELET COUNT 30 10/3/uL (150-400)
[2016-12-11 06:22] LABS: MANUAL DIFF YES %
[2016-12-11 06:34] LABS: ALBUMIN 3.4 G/DL (3.5-5.0); ALKALINE PHOSPHATASE 96 U/L (45-117); BUN (BLOOD UREA NITROGEN) 17 MG/DL (6-23); CALCIUM, SERUM 8.6 MG/DL (8.5-10.4); CHLORIDE, SERUM 105 MMOL/L (96-112); CO2 (CARBON DIOXIDE) 28 MMOL/L (24-34); CREATININE 0.87 MG/DL (0.70-1.30); GFR AFRICAN AMERICAN 136 ML/MIN (>=60); GFR NON AFRICAN AMERICAN 117 ML/MIN (>=60); GLOBULIN 3.3 G/DL (2.5-4.1); GLUCOSE, SERUM 109 MG/DL (60-99); POTASSIUM, SERUM 3.9 MMOL/L (3.5-5.3); SGOT(AST) 219 U/L (5-40); SGPT(ALT) 506 U/L (5-65); SODIUM, SERUM 142 MMOL/L (135-148); TOTAL BILIRUBIN 0.2 MG/DL (0-1.2); TOTAL PROTEIN 6.7 G/DL (6.0-8.5)
[2016-12-11 07:24] LABS: BAND NEUTROPHILS 7 %; BASOPHILS 1 %; BASOPHILS ABSOLUTE (CALC) 0.19 10/3/uL (0.0-0.16); IMMATURE GRANS ABSOLUTE (CALC) 13.94 10/3/uL (0.0-0.11); LYMPHOCYTES 10 %; LYMPHOCYTES ABSOLUTE (CALC) 1.91 10/3/uL (0.67-4.30); METAMYELOCYTES 29 %; MONOCYTES 2 %; MONOCYTES ABSOLUTE (CALC) 0.38 10/3/uL (0.21-1.20); MYELOCYTES 25 %; NEUTROPHILS ABSOLUTE (CALC) 2.67 10/3/uL (2.02-8.40); PROMYELOCYTES 19 % (0); SEGMENTED NEUTROPHIL (0) 7 %; TOTAL NUCLEATED CELLS 100
[2016-12-11 07:25] LABS: POLYCHROMASIA 1+ (2-5/OIF) (0-1/OIF)
[2016-12-12 05:48] LABS: ALBUMIN 3.4 G/DL (3.5-5.0); ALKALINE PHOSPHATASE 94 U/L (45-117); BUN (BLOOD UREA NITROGEN) 16 MG/DL (6-23); CALCIUM, SERUM 8.5 MG/DL (8.5-10.4); CHLORIDE, SERUM 106 MMOL/L (96-112); CO2 (CARBON DIOXIDE) 26 MMOL/L (24-34); GFR AFRICAN AMERICAN 141 ML/MIN (>=60); GFR NON AFRICAN AMERICAN 122 ML/MIN (>=60); GLOBULIN 3.3 G/DL (2.5-4.1); GLUCOSE, SERUM 101 MG/DL (60-99); SGOT(AST) 132 U/L (5-40); SGPT(ALT) 418 U/L (5-65); SODIUM, SERUM 141 MMOL/L (135-148); TOTAL BILIRUBIN 0.3 MG/DL (0-1.2); TOTAL PROTEIN 6.7 G/DL (6.0-8.5)
[2016-12-12 06:12] LABS: INTERNATIONAL NORMAL RATI 1.2 UNITS (-); PARTIAL THROMBO TIME 30.9 SEC (22.5-37.2); PROTIME (NOT ORD) 15.3 SEC (12.0-14.5)
[2016-12-12 06:50] LABS: BAND NEUTROPHILS 7 %; LYMPHOCYTES 17 %; METAMYELOCYTES 27 %; MONOCYTES 2 %; MYELOCYTES 25 %; PROMYELOCYTES 16 % (0); SEGMENTED NEUTROPHIL (0) 6 %; TOTAL NUCLEATED CELLS 100
[2016-12-12 06:52] LABS: POLYCHROMASIA 1+ (2-5/OIF) (0-1/OIF)
[2016-12-12 06:54] LABS: TEARDROP SHAPED RBCS OCC (0-2/OIF)
[2016-12-12 08:18] LABS: HEMATOCRIT 21.9 % (40.0-51.0); MEAN CORPUS HGB CONC 36.5 g/dL (32.0-36.0); MEAN CORPUSCULAR HEMOGLOB 33.8 pg (26.0-34.0); MEAN CORPUSCULAR VOLUME 92.4 fL (80-100); PLATELET COUNT 23 10/3/uL (150-400); RED CELL COUNT 2.37 10/6/uL (4.7-6.1); WHITE BLOOD CELLS 16.8 10/3/uL (4.5-10.5)
[2016-12-12 08:19] LABS: MANUAL DIFF YES %
[2016-12-13 05:43] LABS: HEMATOCRIT 22.8 % (40.0-51.0); HEMOGLOBIN 7.9 g/dL (13.6-17.8); MEAN CORPUSCULAR HEMOGLOB 32.1 pg (26.0-34.0); MEAN CORPUSCULAR VOLUME 92.7 fL (80-100); MEAN PLATELET VOLUME 9.6 fL (9.2-13.0); RED CELL COUNT 2.46 10/6/uL (4.7-6.1); WHITE BLOOD CELLS 16.3 10/3/uL (4.5-10.5)
[2016-12-13 05:44] LABS: MANUAL DIFF YES %; MEAN CORPUS HGB CONC 34.6 g/dL (32.0-36.0); PLATELET COUNT 61 10/3/uL (150-400)
[2016-12-13 05:49] LABS: INTERNATIONAL NORMAL RATI 1.3 UNITS (-); PARTIAL THROMBO TIME 30.5 SEC (22.5-37.2); PROTIME (NOT ORD) 15.6 SEC (12.0-14.5)
[2016-12-13 05:55] LABS: FIBRINOGEN 159 MG/DL (230-462)
[2016-12-13 06:00] LABS: ALBUMIN 3.4 G/DL (3.5-5.0); ALKALINE PHOSPHATASE 102 U/L (45-117); BUN (BLOOD UREA NITROGEN) 15 MG/DL (6-23); CALCIUM, SERUM 8.7 MG/DL (8.5-10.4); CHLORIDE, SERUM 107 MMOL/L (96-112); CO2 (CARBON DIOXIDE) 28 MMOL/L (24-34); CREATININE 0.81 MG/DL (0.70-1.30); GFR AFRICAN AMERICAN 140 ML/MIN (>=60); GFR NON AFRICAN AMERICAN 121 ML/MIN (>=60); GLOBULIN 3.3 G/DL (2.5-4.1); GLUCOSE, SERUM 104 MG/DL (60-99); POTASSIUM, SERUM 3.9 MMOL/L (3.5-5.3); SGOT(AST) 69 U/L (5-40); SGPT(ALT) 314 U/L (5-65); SODIUM, SERUM 143 MMOL/L (135-148); TOTAL BILIRUBIN 0.3 MG/DL (0-1.2); TOTAL PROTEIN 6.7 G/DL (6.0-8.5)
[2016-12-13 06:49] LABS: BAND NEUTROPHILS 6 %; IMMATURE GRANS ABSOLUTE (CALC) 11.08 10/3/uL (0.0-0.11); LYMPHOCYTES 14 %; LYMPHOCYTES ABSOLUTE (CALC) 2.28 10/3/uL (0.67-4.30); METAMYELOCYTES 27 %; MYELOCYTES 22 %; NEUTROPHILS ABSOLUTE (CALC) 2.93 10/3/uL (2.02-8.40); PROMYELOCYTES 19 % (0); SEGMENTED NEUTROPHIL (0) 12 %; TOTAL NUCLEATED CELLS 100
[2016-12-13 06:50] LABS: PLATELET ESTIMATE DEC (ADEQUATE)
[2016-12-13 06:52] LABS: POIKILOCYTOSIS 1+ (5-10/OIF) (0-5/OIF); TEARDROP SHAPED RBCS OCC (0-2/OIF); TOXIC GRANULATION 1+
[2016-12-14 05:47] LABS: HEMATOCRIT 21.8 % (40.0-51.0); HEMOGLOBIN 7.7 g/dL (13.6-17.8); MEAN CORPUS HGB CONC 35.3 g/dL (32.0-36.0); MEAN CORPUSCULAR HEMOGLOB 32.8 pg (26.0-34.0); MEAN CORPUSCULAR VOLUME 92.8 fL (80-100); MEAN PLATELET VOLUME 10.4 fL (9.2-13.0); PLATELET COUNT 57 10/3/uL (150-400); RBC DISTRIBUTION WIDTH 15.3 % (12.0-16.0); RED CELL COUNT 2.35 10/6/uL (4.7-6.1); WHITE BLOOD CELLS 14.9 10/3/uL (4.5-10.5)
[2016-12-14 05:49] LABS: MANUAL DIFF YES %
[2016-12-14 05:56] LABS: INTERNATIONAL NORMAL RATI 1.2 UNITS (-)
[2016-12-14 05:57] LABS: PARTIAL THROMBO TIME 28.1 SEC (22.5-37.2)
[2016-12-14 06:05] LABS: FIBRINOGEN 150 MG/DL (230-462)
[2016-12-14 06:06] LABS: A/G RATIO 1.1 (0.7-1.9); ALBUMIN 3.5 G/DL (3.5-5.0); BUN (BLOOD UREA NITROGEN) 18 MG/DL (6-23); CALCIUM, SERUM 8.8 MG/DL (8.5-10.4); CHLORIDE, SERUM 106 MMOL/L (96-112); CO2 (CARBON DIOXIDE) 26 MMOL/L (24-34); CREATININE 0.77 MG/DL (0.70-1.30); GFR AFRICAN AMERICAN 143 ML/MIN (>=60); GFR NON AFRICAN AMERICAN 123 ML/MIN (>=60); GLOBULIN 3.1 G/DL (2.5-4.1); GLUCOSE, SERUM 104 MG/DL (60-99); POTASSIUM, SERUM 3.8 MMOL/L (3.5-5.3); SGOT(AST) 52 U/L (5-40); SGPT(ALT) 250 U/L (5-65); SODIUM, SERUM 141 MMOL/L (135-148); TOTAL BILIRUBIN 0.2 MG/DL (0-1.2); TOTAL PROTEIN 6.6 G/DL (6.0-8.5)
[2016-12-14 06:08] LABS: ALKALINE PHOSPHATASE 90 U/L (45-117)
[2016-12-14 06:17] LABS: BAND NEUTROPHILS 7 %; IMMATURE GRANS ABSOLUTE (CALC) 9.83 10/3/uL (0.0-0.11); LYMPHOCYTES 15 %; LYMPHOCYTES ABSOLUTE (CALC) 2.24 10/3/uL (0.67-4.30); METAMYELOCYTES 26 %; MYELOCYTES 23 %; NEUTROPHILS ABSOLUTE (CALC) 2.83 10/3/uL (2.02-8.40); PROMYELOCYTES 17 % (0); SEGMENTED NEUTROPHIL (0) 12 %; TOTAL NUCLEATED CELLS 100
[2016-12-14 06:18] LABS: PLATELET ESTIMATE DEC (ADEQUATE)
[2016-12-15 06:19] LABS: INTERNATIONAL NORMAL RATI 1.2 UNITS (-); PARTIAL THROMBO TIME 29.4 SEC (22.5-37.2); PROTIME (NOT ORD) 14.9 SEC (12.0-14.5)
[2016-12-15 06:24] LABS: A/G RATIO 1.1 (0.7-1.9); ALBUMIN 3.5 G/DL (3.5-5.0); ALKALINE PHOSPHATASE 92 U/L (45-117); BUN (BLOOD UREA NITROGEN) 15 MG/DL (6-23); CHLORIDE, SERUM 105 MMOL/L (96-112); CO2 (CARBON DIOXIDE) 26 MMOL/L (24-34); CREATININE 0.79 MG/DL (0.70-1.30); FERRITIN 686 NG/ML (26-388); GFR AFRICAN AMERICAN 142 ML/MIN (>=60); GFR NON AFRICAN AMERICAN 122 ML/MIN (>=60); GLOBULIN 3.2 G/DL (2.5-4.1); GLUCOSE, SERUM 98 MG/DL (60-99); POTASSIUM, SERUM 3.9 MMOL/L (3.5-5.3); SGOT(AST) 47 U/L (5-40); SGPT(ALT) 214 U/L (5-65); SODIUM, SERUM 142 MMOL/L (135-148); TOTAL BILIRUBIN 0.3 MG/DL (0-1.2); TOTAL PROTEIN 6.7 G/DL (6.0-8.5)
[2016-12-15 06:25] LABS: FIBRINOGEN 147 MG/DL (230-462)
[2016-12-15 06:29] LABS: HEMATOCRIT 22.1 % (40.0-51.0); HEMOGLOBIN 7.8 g/dL (13.6-17.8); MEAN CORPUS HGB CONC 35.3 g/dL (32.0-36.0); MEAN CORPUSCULAR HEMOGLOB 32.6 pg (26.0-34.0); MEAN CORPUSCULAR VOLUME 92.5 fL (80-100); MEAN PLATELET VOLUME 9.7 fL (9.2-13.0); PLATELET COUNT 54 10/3/uL (150-400); RBC DISTRIBUTION WIDTH 15.3 % (12.0-16.0); RED CELL COUNT 2.39 10/6/uL (4.7-6.1); WHITE BLOOD CELLS 14.7 10/3/uL (4.5-10.5)
[2016-12-15 06:32] LABS: MANUAL DIFF YES %
[2016-12-15 06:50] LABS: BAND NEUTROPHILS 10 %; EOSINOPHILS 2 %; EOSINOPHILS ABSOLUTE (CALC) 0.29 10/3/uL (0.0-0.53); IMMATURE GRANS ABSOLUTE (CALC) 6.32 10/3/uL (0.0-0.11); LYMPHOCYTES 25 %; LYMPHOCYTES ABSOLUTE (CALC) 3.68 10/3/uL (0.67-4.30); METAMYELOCYTES 19 %; MONOCYTES 3 %; MONOCYTES ABSOLUTE (CALC) 0.44 10/3/uL (0.21-1.20); MYELOCYTES 13 %; NEUTROPHILS ABSOLUTE (CALC) 3.97 10/3/uL (2.02-8.40); PLATELET ESTIMATE DEC (ADEQUATE); POLYCHROMASIA 1+ (2-5/OIF) (0-1/OIF); PROMYELOCYTES 11 % (0); SEGMENTED NEUTROPHIL (0) 17 %; TOTAL NUCLEATED CELLS 100; TOXIC GRANULATION 1+; VACUOLATED NEUTROPHILES OCC
[2016-12-16 06:11] LABS: HEMATOCRIT 21.5 % (40.0-51.0); HEMOGLOBIN 7.6 g/dL (13.6-17.8); MEAN CORPUS HGB CONC 35.3 g/dL (32.0-36.0); MEAN CORPUSCULAR HEMOGLOB 32.9 pg (26.0-34.0); MEAN CORPUSCULAR VOLUME 93.1 fL (80-100); NUCLEATED RED BLOOD CELLS 0.4 /100WBC (0-0); PLATELET COUNT 56 10/3/uL (150-400); RBC DISTRIBUTION WIDTH 15.8 % (12.0-16.0); RED CELL COUNT 2.31 10/6/uL (4.7-6.1); WHITE BLOOD CELLS 10.5 10/3/uL (4.5-10.5)
[2016-12-16 06:13] LABS: A/G RATIO 1.1 (0.7-1.9); ALBUMIN 3.7 G/DL (3.5-5.0); ALKALINE PHOSPHATASE 96 U/L (45-117); BUN (BLOOD UREA NITROGEN) 18 MG/DL (6-23); CHLORIDE, SERUM 106 MMOL/L (96-112); CO2 (CARBON DIOXIDE) 27 MMOL/L (24-34); CREATININE 0.78 MG/DL (0.70-1.30); FERRITIN 734 NG/ML (26-388); GFR AFRICAN AMERICAN 142 ML/MIN (>=60); GFR NON AFRICAN AMERICAN 123 ML/MIN (>=60); GLOBULIN 3.3 G/DL (2.5-4.1); GLUCOSE, SERUM 91 MG/DL (60-99); MANUAL DIFF YES %; POTASSIUM, SERUM 3.7 MMOL/L (3.5-5.3); SGOT(AST) 54 U/L (5-40); SGPT(ALT) 207 U/L (5-65); SODIUM, SERUM 143 MMOL/L (135-148); TOTAL BILIRUBIN 0.3 MG/DL (0-1.2)
[2016-12-16 06:22] LABS: INTERNATIONAL NORMAL RATI 1.2 UNITS (-); PARTIAL THROMBO TIME 30.4 SEC (22.5-37.2); PROTIME (NOT ORD) 15.1 SEC (12.0-14.5)
[2016-12-16 08:04] LABS: BAND NEUTROPHILS 12 %; EOSINOPHILS 1 %; EOSINOPHILS ABSOLUTE (CALC) 0.11 10/3/uL (0.0-0.53); IMMATURE GRANS ABSOLUTE (CALC) 2.21 10/3/uL (0.0-0.11); LYMPHOCYTES 18 %; LYMPHOCYTES ABSOLUTE (CALC) 1.89 10/3/uL (0.67-4.30); METAMYELOCYTES 7 %; MONOCYTES 1 %; MONOCYTES ABSOLUTE (CALC) 0.11 10/3/uL (0.21-1.20); MYELOCYTES 4 %; PLATELET ESTIMATE DEC (ADEQUATE); PROMYELOCYTES 10 % (0); RBC MORPHOLOGY NORM (NORMAL); SEGMENTED NEUTROPHIL (0) 47 %; TOTAL NUCLEATED CELLS 100
[2016-12-17 05:50] LABS: INTERNATIONAL NORMAL RATI 1.2 UNITS (-); PARTIAL THROMBO TIME 29.3 SEC (22.5-37.2); PROTIME (NOT ORD) 15.3 SEC (12.0-14.5)
[2016-12-17 06:02] LABS: A/G RATIO 1.1 (0.7-1.9); ALBUMIN 3.6 G/DL (3.5-5.0); ALKALINE PHOSPHATASE 86 U/L (45-117); BUN (BLOOD UREA NITROGEN) 19 MG/DL (6-23); CALCIUM, SERUM 8.9 MG/DL (8.5-10.4); CHLORIDE, SERUM 108 MMOL/L (96-112); CO2 (CARBON DIOXIDE) 28 MMOL/L (24-34); CREATININE 0.79 MG/DL (0.70-1.30); FERRITIN 702 NG/ML (26-388); GFR AFRICAN AMERICAN 142 ML/MIN (>=60); GFR NON AFRICAN AMERICAN 122 ML/MIN (>=60); GLOBULIN 3.2 G/DL (2.5-4.1); GLUCOSE, SERUM 98 MG/DL (60-99); POTASSIUM, SERUM 3.8 MMOL/L (3.5-5.3); SGOT(AST) 54 U/L (5-40); SGPT(ALT) 188 U/L (5-65); SODIUM, SERUM 144 MMOL/L (135-148); TOTAL BILIRUBIN 0.2 MG/DL (0-1.2); TOTAL PROTEIN 6.8 G/DL (6.0-8.5)
[2016-12-17 06:11] LABS: HEMATOCRIT 21.6 % (40.0-51.0); HEMOGLOBIN 7.5 g/dL (13.6-17.8); MEAN CORPUS HGB CONC 34.7 g/dL (32.0-36.0); MEAN CORPUSCULAR HEMOGLOB 32.6 pg (26.0-34.0); MEAN CORPUSCULAR VOLUME 93.9 fL (80-100); MEAN PLATELET VOLUME 9.9 fL (9.2-13.0); NUCLEATED RED BLOOD CELLS 0.6 /100WBC (0-0); PLATELET COUNT 64 10/3/uL (150-400); WHITE BLOOD CELLS 9.5 10/3/uL (4.5-10.5)
[2016-12-17 06:12] LABS: MANUAL DIFF YES %
[2016-12-17 06:40] LABS: BAND NEUTROPHILS 14 %; EOSINOPHILS 1 %; IMMATURE GRANS ABSOLUTE (CALC) 1.52 10/3/uL (0.0-0.11); LYMPHOCYTES 40 %; METAMYELOCYTES 6 %; MONOCYTES 2 %; MONOCYTES ABSOLUTE (CALC) 0.19 10/3/uL (0.21-1.20); MYELOCYTES 3 %; PLATELET ESTIMATE DEC (ADEQUATE); PROMYELOCYTES 7 % (0); SEGMENTED NEUTROPHIL (0) 27 %; TOTAL NUCLEATED CELLS 100
[2016-12-17 06:41] LABS: RBC MORPHOLOGY NORM (NORMAL)
[2016-12-18 05:59] LABS: FIBRINOGEN 173 MG/DL (230-462); HEMATOCRIT 21.6 % (40.0-51.0); HEMOGLOBIN 7.7 g/dL (13.6-17.8); INTERNATIONAL NORMAL RATI 1.2 UNITS (-); MEAN CORPUS HGB CONC 35.6 g/dL (32.0-36.0); MEAN CORPUSCULAR VOLUME 92.7 fL (80-100); MEAN PLATELET VOLUME 9.3 fL (9.2-13.0); NUCLEATED RED BLOOD CELLS 1.2 /100WBC (0-0); PARTIAL THROMBO TIME 29.7 SEC (22.5-37.2); PLATELET COUNT 69 10/3/uL (150-400); PROTIME (NOT ORD) 14.9 SEC (12.0-14.5); RBC DISTRIBUTION WIDTH 16.6 % (12.0-16.0); RED CELL COUNT 2.33 10/6/uL (4.7-6.1); WHITE BLOOD CELLS 6.9 10/3/uL (4.5-10.5)
[2016-12-18 06:00] LABS: MANUAL DIFF YES %
[2016-12-18 06:06] LABS: A/G RATIO 1.2 (0.7-1.9); ALBUMIN 3.8 G/DL (3.5-5.0); ALKALINE PHOSPHATASE 99 U/L (45-117); BUN (BLOOD UREA NITROGEN) 19 MG/DL (6-23); CALCIUM, SERUM 9.1 MG/DL (8.5-10.4); CHLORIDE, SERUM 105 MMOL/L (96-112); CO2 (CARBON DIOXIDE) 28 MMOL/L (24-34); CREATININE 0.89 MG/DL (0.70-1.30); GFR AFRICAN AMERICAN 135 ML/MIN (>=60); GFR NON AFRICAN AMERICAN 116 ML/MIN (>=60); GLOBULIN 3.2 G/DL (2.5-4.1); GLUCOSE, SERUM 93 MG/DL (60-99); POTASSIUM, SERUM 3.8 MMOL/L (3.5-5.3); SGOT(AST) 49 U/L (5-40); SGPT(ALT) 163 U/L (5-65); SODIUM, SERUM 141 MMOL/L (135-148); TOTAL BILIRUBIN 0.3 MG/DL (0-1.2)
[2016-12-18 06:16] LABS: BAND NEUTROPHILS 18 %; EOSINOPHILS 3 %; EOSINOPHILS ABSOLUTE (CALC) 0.21 10/3/uL (0.0-0.53); IMMATURE GRANS ABSOLUTE (CALC) 0.83 10/3/uL (0.0-0.11); LYMPHOCYTES 37 %; LYMPHOCYTES ABSOLUTE (CALC) 2.55 10/3/uL (0.67-4.30); METAMYELOCYTES 6 %; MONOCYTES 6 %; MONOCYTES ABSOLUTE (CALC) 0.41 10/3/uL (0.21-1.20); MYELOCYTES 2 %; PLATELET ESTIMATE DEC (ADEQUATE); PROMYELOCYTES 4 % (0); RBC MORPHOLOGY NORM (NORMAL); SEGMENTED NEUTROPHIL (0) 24 %; TOTAL NUCLEATED CELLS 100
[2016-12-19 06:16] LABS: A/G RATIO 1.2 (0.7-1.9); ALBUMIN 3.8 G/DL (3.5-5.0); ALKALINE PHOSPHATASE 96 U/L (45-117); BUN (BLOOD UREA NITROGEN) 16 MG/DL (6-23); CALCIUM, SERUM 9.1 MG/DL (8.5-10.4); CHLORIDE, SERUM 107 MMOL/L (96-112); CO2 (CARBON DIOXIDE) 27 MMOL/L (24-34); CREATININE 0.87 MG/DL (0.70-1.30); GFR AFRICAN AMERICAN 136 ML/MIN (>=60); GFR NON AFRICAN AMERICAN 117 ML/MIN (>=60); GLOBULIN 3.3 G/DL (2.5-4.1); GLUCOSE, SERUM 94 MG/DL (60-99); POTASSIUM, SERUM 3.8 MMOL/L (3.5-5.3); SGOT(AST) 50 U/L (5-40); SGPT(ALT) 154 U/L (5-65); SODIUM, SERUM 142 MMOL/L (135-148); TOTAL BILIRUBIN 0.3 MG/DL (0-1.2); TOTAL PROTEIN 7.1 G/DL (6.0-8.5)
[2016-12-19 06:30] LABS: HEMATOCRIT 21.7 % (40.0-51.0); HEMOGLOBIN 7.6 g/dL (13.6-17.8); MEAN CORPUSCULAR HEMOGLOB 32.8 pg (26.0-34.0); MEAN CORPUSCULAR VOLUME 93.5 fL (80-100); MEAN PLATELET VOLUME 9.7 fL (9.2-13.0); PLATELET COUNT 81 10/3/uL (150-400); RBC DISTRIBUTION WIDTH 16.8 % (12.0-16.0); RED CELL COUNT 2.32 10/6/uL (4.7-6.1); WHITE BLOOD CELLS 5.6 10/3/uL (4.5-10.5)
[2016-12-19 06:32] LABS: MANUAL DIFF YES %
[2016-12-19 06:50] LABS: ANISOCYTOSIS 1+ (5-10/OIF) (0-5/OIF); BAND NEUTROPHILS 13 %; EOSINOPHILS 4 %; EOSINOPHILS ABSOLUTE (CALC) 0.22 10/3/uL (0.0-0.53); IMMATURE GRANS ABSOLUTE (CALC) 0.84 10/3/uL (0.0-0.11); LYMPHOCYTES 37 %; LYMPHOCYTES ABSOLUTE (CALC) 2.07 10/3/uL (0.67-4.30); METAMYELOCYTES 8 %; MONOCYTES 8 %; MONOCYTES ABSOLUTE (CALC) 0.45 10/3/uL (0.21-1.20); MYELOCYTES 3 %; NEUTROPHILS ABSOLUTE (CALC) 2.02 10/3/uL (2.02-8.40); PLATELET ESTIMATE DEC (ADEQUATE); PROMYELOCYTES 4 % (0); SEGMENTED NEUTROPHIL (0) 23 %; TOTAL NUCLEATED CELLS 100
[2016-12-19] MEDS ORDERED: VESANOID10 MG PO ×2 (11:46→11:47)
[2016-12-19] MEDS ORDERED: [UNRECOGNIZED DRUG - OTHER] IV (11:51)
[2016-12-19] MEDS ORDERED: CILOXAN OT (11:55)
== END 2016-12-19 15:20 | disposition home or self-care (01) | DRG 836 ==
LOC: 4SO 20:45 → 4EA 11-24 22:41
PROVIDERS: Internal Medicine; Internal Medicine Hematology & Oncology; Surgery
PROC: 05H533Z Insertion of Infusion Device into Right Subclavian Vein, Percutaneous Approach (ICD-10-PCS; principal; 2016-11-23)
PROC: B5161ZA Fluoroscopy of Right Subclavian Vein using Low Osmolar Contrast, Guidance (ICD-10-PCS; 2016-11-23)
PROC: 30233R0 Transfusion of Autologous Platelets into Peripheral Vein, Percutaneous Approach (ICD-10-PCS; 2016-11-23)
PROC: 30233K1 Transfusion of Nonautologous Frozen Plasma into Peripheral Vein, Percutaneous Approach (ICD-10-PCS; 2016-11-24)
PROC: 30233N1 Transfusion of Nonautologous Red Blood Cells into Peripheral Vein, Percutaneous Approach (ICD-10-PCS; 2016-11-24)
PROC: 02HV33Z Insertion of Infusion Device into Superior Vena Cava, Percutaneous Approach (ICD-10-PCS; 2016-11-25)
PROC: 4A02X4A Measurement of Cardiac Electrical Activity, Guidance, External Approach (ICD-10-PCS; 2016-11-25)
PROC: 3E03305 Introduction of Other Antineoplastic into Peripheral Vein, Percutaneous Approach (ICD-10-PCS; 2016-11-27)
DX: C95.00 Acute leukemia of unspecified cell type not having achieved remission (principal); D69.6 Thrombocytopenia, unspecified; R74.0 Nonspecific elevation of levels of transaminase and lactic acid dehydrogenase [LDH]
CPT/HCPCS: 36415; 36569; 36593; 71010; 71020; 77001; 80048; 80053; 82728; 85025; 85045; 85384; 85610; 85730; 86850; 86900; 86901; 86920; 88305; 88311; 88313; 88342; 88360; 93005; 93306; A9270-GY; C1751; J0690; J2250; J2405; J3010; J9017; P9016; P9035; P9037; P9040; P9059